=== PATIENT | female | born 1965 | race Caucasian/White ===

== ENCOUNTER → 2017-08-16 | Outpatient (CLI) | payer BC ==
[~2017-08-16] MED LIST: ASP81TEC PO; ASPI-892; CYCL5TAB11 PO; EST.1TD TOP; HCT25T; HYDR1TAB PO; IBP600T1 PO; KETO-22 PO; LISI1TAB PO; LOPE-134 PO; LORA1TAB PO; LSNP20T; NFR150C PO; ONDA8TAB9 PO; PROM25SU10 RC; RNT150T PO; TRAM50TA2 PO; TRM50T PO
--- NOTE | 2017-08-17 18:56 | Diagnostic Imaging Report ---
Bilateral screening mammogram 2D views with tomosynthesis. The current study was also evaluated with a Computer Aided Detection (CAD) system. INDICATION: Screening. No current complaints stated on the questionnaire. COMPARISON: 05/26/16 FINDINGS: The breasts are composed of scattered fibroglandular densities. There are scattered benign-appearing calcifications. Allowing for technique and positional differences, no suspicious change is seen. IMPRESSION: No significant change. ACR BI-RADS Category 2: Benign findings. Result letter will be mailed to the patient. Note: At least 10% of breast cancer is not imaged by mammography. Dictated on workstation # [id number]
== END ==
LOC: RAD 15:36
PROVIDERS: ATTEND Nurse Practitioner Community Health
DX: Z12.31 Encounter for screening mammogram for malignant neoplasm of breast (principal)
CPT/HCPCS: 77067

== ENCOUNTER → 2018-06-27 | Outpatient (CLI) | payer BC ==
--- NOTE | 2018-06-27 13:35 | Diagnostic Imaging Report ---
PROCEDURE: US Non-ob pelvis comp/trans. TECHNIQUE: Multiple realtime grayscale images were obtained of the pelvis in various projections endovaginally. Transabdominal imaging was also performed. INDICATION: Pelvic fullness on physical exam. The patient has prior history of hysterectomy. The uterus and ovaries are surgically absent. There is a 5.7 x 7.5 x 6.8 cm complex cystic mass in the midline of the pelvis, posterior to urinary bladder and adjacent to the vaginal cuff. There is internal debris. No internal vascularity is seen. No other abnormalities are detected. IMPRESSION: Complex cystic mass in the midline pelvis adjacent to the vaginal cuff, as described. This may represent a complex cyst or resolving hematoma, seroma. Perhaps percutaneous drainage via the vaginal cuff could be performed. No other abnormality is seen. Dictated by: Dictated on workstation # [id number]
== END ==
LOC: RAD 12:18
PROVIDERS: ATTEND Nurse Practitioner
DX: N94.89 Other specified conditions associated with female genital organs and menstrual cycle (principal); Z90.710 Acquired absence of both cervix and uterus; Z90.722 Acquired absence of ovaries, bilateral
CPT/HCPCS: 76830; 76856

== ENCOUNTER → 2018-08-19 | Outpatient (CLI) | payer BC ==
--- NOTE | 2018-08-19 11:46 | Diagnostic Imaging Report ---
EXAMINATION: 2D and 3D bilateral screening mammography was performed with CAD. 3D tomosynthesis was also performed and reviewed. INDICATION: Routine screening. COMPARISON: 08/16/2017 and 05/26/2016. FINDINGS: Both breasts are heterogeneously dense, limiting the sensitivity of mammography. No discrete mass or malignant appearing microcalcifications are seen. The axillae are unremarkable. IMPRESSION: No mammographic features suspicious for malignancy are identified. ACR BI-RADS Category 1: Negative. Result letter will be mailed to the patient. Note: At least 10% of breast cancer is not imaged by mammography. Dictated by: Dictated on workstation # [id number]
== END ==
LOC: RAD 07:52
PROVIDERS: ATTEND Nurse Practitioner
DX: Z12.31 Encounter for screening mammogram for malignant neoplasm of breast (principal)
CPT/HCPCS: 77067

== ENCOUNTER → 2019-10-13 | Outpatient (CLI) | payer BC ==
--- NOTE | 2019-10-14 10:50 | Diagnostic Imaging Report ---
Digital mammogram. Bilateral screening. The study was compared to the prior exam of 08/19/2018, 08/16/2017 and 06/26/2016. At this time there are no current complaints. The fibroglandular tissue in both breasts is heterogeneously dense. This does limit the sensitivity of this exam. Overall, there is does not appear to have been any significant change since the prior study. The small benign-appearing nodular density in the upper outer aspect of the right breast seen previously is again evident. There is no primary or secondary sign of malignancy noted. Impression: There is no evidence of malignancy. ACR BI-RADS Category 1: Negative. Result letter will be mailed to the patient. Note: At least 10% of breast cancer is not imaged by mammography. Dictated by: Dictated on workstation # [id number]
== END ==
LOC: RAD 15:44
PROVIDERS: ATTEND Obstetrics & Gynecology
DX: Z12.31 Encounter for screening mammogram for malignant neoplasm of breast (principal)
CPT/HCPCS: 77067

== ENCOUNTER → 2021-01-04 | Outpatient (CLI) | payer BC ==
--- NOTE | 2021-01-04 15:52 | Diagnostic Imaging Report ---
EXAMINATION: Digital mammogram bilateral screening with CAD. INDICATION: Screening. COMPARISON: This study was compared to the prior exams of 10/13/2019, 08/19/2018, and 08/16/2017. PERSONAL HISTORY: At this time, there are no current complaints. FINDINGS: The fibroglandular tissue in both breasts is heterogeneously dense. This does limit the sensitivity of this exam. Overall, there does not appear to have been any significant change when compared to the prior study. No primary or secondary sign of malignancy is noted. IMPRESSION: There is no radiographic evidence for malignancy. ACR BI-RADS Category 1: Negative. Result letter will be mailed to the patient. Note: At least 10% of breast cancer is not imaged by mammography. Dictated by: Dictated on workstation # [id number]
== END ==
LOC: RAD 10:25
PROVIDERS: ATTEND Obstetrics & Gynecology
DX: Z12.31 Encounter for screening mammogram for malignant neoplasm of breast (principal)
CPT/HCPCS: 77063; 77067

== ENCOUNTER 2021-07-14 08:58 | Outpatient (CLI) | payer BC ==
[~2021-07-14] VITALS: Ht 167.7 cm; Wt 68.0 kg
[2021-07-14] MEDS ORDERED: EPINEPHrine INJECTION 1 MG/ML AMP IM PRN (09:00)
[2021-07-14] MEDS ORDERED: CASIRIVIMAB/IMDEVIMAB 1,200 MG in NS (IVPB) 250 ML IV ONE (09:00)
[2021-07-14] MEDS ORDERED: ACETAMINOPHEN 500 MG TAB (TYLENOL) PO PRN (09:00)
[2021-07-14] MEDS ORDERED: diphenhydrAMINE 50 MG/ML INJ (BENADRYL) IV PRN (09:00)
[2021-07-14] MEDS ORDERED: ONDANSETRON 4 MG/2 ML (SDV) Z0FRAN IV PRN (09:00)
[2021-07-14 09:04] VITALS: BP 98/61
[2021-07-14 09:06] VITALS: BP 98/61
[2021-07-14 09:41] LABS: ALBUMIN 4.2 GM/DL (3.2-4.5); BILIRUBIN,TOTAL 0.5 MG/DL (0.1-1.0); CALCIUM 9.5 MG/DL (8.5-10.1); CREATININE SERUM 1.02 MG/DL (0.60-1.30); POTASSIUM 3.8 MMOL/L (3.6-5.0)
[2021-07-14 10:05] VITALS: BP 81/59
== END 2021-07-14 10:30 | disposition home or self-care (01) ==
LOC: INFUSION 08:58
PROVIDERS: ATTEND Nurse Practitioner Family
DX: Z23 Encounter for immunization (principal); U07.1 COVID-19
CPT/HCPCS: 80053; M0243; 36415

== ENCOUNTER 2021-09-09 15:56 | Outpatient (CLI) | payer BC ==
[~2021-09-09] VITALS: Ht 165 cm; Wt 68.0 kg
[2021-09-09 16:11] VITALS: BP 101/63
[2021-09-09] MEDS ORDERED: NS IV 1000 ML 1,000 ML ONE (16:14)
[2021-09-09] MEDS ORDERED: NS IV 1000 ML 1,000 ML IV SCH (16:15)
== END 2021-09-09 17:27 | disposition home or self-care (01) ==
LOC: SDC 15:56
PROVIDERS: ATTEND Family Medicine
DX: E86.0 Dehydration (principal); R19.7 Diarrhea, unspecified

== ENCOUNTER → 2021-09-13 | Outpatient (CLI) | payer BC ==
--- NOTE | 2021-09-13 16:22 | Diagnostic Imaging Report ---
PROCEDURE: CT abdomen and pelvis without contrast. TECHNIQUE: Multiple contiguous axial images were obtained through the abdomen and pelvis without the use of intravenous contrast. Auto Exposure Controls were utilized during the CT exam to meet ALARA standards for radiation dose reduction. INDICATION: Abdominal pain and diarrhea. COMPARISON: Correlation is made with CT pelvis study from 07/15/2018. FINDINGS: The lung bases are clear. The liver and gallbladder are unremarkable. There is no biliary ductal dilatation. Pancreas and spleen are unremarkable. Rounded calcific densities in the region of the pancreatic body and tail are noted which may represent splenic artery aneurysms. No adrenal mass is detected. Kidneys are unremarkable. No calculi or hydronephrosis is detected. Aorta is nonaneurysmal. The colon does contain some fluid consistent with known diarrheal state but no abnormal dilatation or evidence of obstruction is seen. Appendix is unremarkable. There is trace free fluid in the pelvis. No free fluid in the abdomen is identified. Uterus is surgically absent. IMPRESSION: Fluid within the colon. The study is otherwise unremarkable. Dictated by: Dictated on workstation # [id number]
== END ==
LOC: RAD 15:45
PROVIDERS: ATTEND Family Medicine
DX: R19.7 Diarrhea, unspecified (principal); R10.9 Unspecified abdominal pain
CPT/HCPCS: 74176

== ENCOUNTER → 2021-12-23 | Outpatient (CLI) | payer BC ==
--- NOTE | 2021-12-23 17:09 | Diagnostic Imaging Report ---
PROCEDURE: US Renal/Bladder. TECHNIQUE: Multiple real-time grayscale images were obtained over the kidneys in various projections, bilaterally. INDICATION: Chronic kidney disease. COMPARISON: 09/13/2021. FINDINGS: Right: The right kidney measures 9.4 cm in length. Renal cortical thickness and echogenicity are within normal limits. There is mild prominence of the right renal pelvis and calyces in the right kidney. There is no evidence of calculi or solid focal mass. No perinephric fluid collections are identified. Left: The left kidney measures 10.7 cm in length. Renal cortical thickness and echogenicity are within normal limits. There is mild prominence of the left renal pelvis and calyces of the left kidney. There is no evidence of calculi or solid focal mass. No perinephric fluid collections are identified. There is no abdominal ascites. Views of the pelvis demonstrate a moderately distended urinary bladder. Both ureteral jets are seen. No large intraluminal filling defect or calculi are identified. IMPRESSION: Mild bilateral hydronephrosis. Findings may partially be due to the moderately distended urinary bladder. Recommend continued follow-up, as indicated. Dictated by: Dictated on workstation # [id number]
== END ==
LOC: RAD 14:30
PROVIDERS: ATTEND Internal Medicine
DX: N13.30 Unspecified hydronephrosis (principal); N18.31 Chronic kidney disease, stage 3a
CPT/HCPCS: 76770

== ENCOUNTER → 2022-03-28 | Outpatient (CLI) | payer BC ==
--- NOTE | 2022-03-28 17:05 | Diagnostic Imaging Report ---
Examination: Ultrasound pelvis Date: March 28, 2022. Indication: 56-year-old female, pelvic pressure and pain.. Comparison: CT abdomen and pelvis September 13, 2021. Technique: A sonogram of the pelvis was performed utilizing transabdominal approaches assessing sanchez-scale appearance and color Doppler flow. Findings: The uterus and ovaries are not seen and may be surgically absent. There is no demonstrated adnexal mass or free pelvic fluid. Impression: 1. Uterus and ovaries are not well seen and may be surgically absent. 2. No identified adnexal mass, other pelvic mass, or free pelvic fluid. Dictated by: Dictated on workstation # [id number]
== END ==
LOC: RAD 13:30
PROVIDERS: ATTEND Family Medicine
DX: R10.2 Pelvic and perineal pain (principal)
CPT/HCPCS: 76830; 76856

== ENCOUNTER → 2022-04-19 | Outpatient (CLI) | payer BC ==
--- NOTE | 2022-04-19 17:14 | Diagnostic Imaging Report ---
PROCEDURE: US Renal Bilateral. TECHNIQUE: Multiple real-time grayscale images were obtained over the kidneys in various projections bilaterally. INDICATION: Hydronephrosis. FINDINGS: Right kidney measures 9.5 x 4.7 x 4.3 cm. Left kidney measures 10.9 x 4.7 x 5 cm. Both kidneys demonstrate normal renal cortical thickness and echogenicity. There is bilateral hydronephrosis. There is no mass or calculi. Prevoid bladder volumes 423 mL. Neither ureteral jet was visualized. Postvoid bladder volumes 8.75 mL. IMPRESSION: Bilateral hydronephrosis otherwise unremarkable renal ultrasound. Dictated by: Dictated on workstation # [id number]
== END ==
LOC: RAD 15:15
PROVIDERS: ATTEND Nurse Practitioner Family
DX: N13.39 Other hydronephrosis (principal)
CPT/HCPCS: 76770

== ENCOUNTER → 2022-05-11 | Outpatient (CLI) | payer BC ==
[~2022-05-11] MED LIST changes: +FUROSEMIDE 40 MG/4 ML INJ (LASIX) IVP ONE; +FUROSEMIDE 40 MG/4 ML INJ (LASIX) ONE
[2022-05-11] MEDS: CATHETER FLUSH 10 ML SYR IVP PRN ×2 (07:17→07:35)
--- NOTE | 2022-05-11 08:27 | Diagnostic Imaging Report ---
EXAMINATION: Nuclear medicine renal scintigraphy with Lasix. HISTORY: Hydronephrosis TECHNIQUE: Flow and functional dynamic images were obtained of the bilateral kidneys in the posterior projection following the administration of 5.36 mCi of Tc 99m-MAG3. Response to diuretic was also performed following the administration of 40 mg of Lasix at 20 minutes. FINDINGS: There is symmetric and homogenous perfusion to both kidneys. Kidneys are normal in size and location. There is symmetric cortical uptake to both kidneys. There is symmetric excretion following Lasix administration. There is no hydronephrosis. Split renal function is 47% on the right and 53% on the left. T1/2 to peak prior to Lasix is eight minutes on the right and seven minutes on the left. Time to peak prior to Lasix is one minute on the right and one minute on the left. T1/2 of excretion after administration of Lasix is 15 minutes on the right and 15 minutes on the left. IMPRESSION: 1. Normal flow and function of both kidneys without evidence of obstruction. Dictated by: Dictated on workstation # [id number]
== END ==
LOC: CARD 07:00
PROVIDERS: ATTEND Nurse Practitioner Family
DX: N13.39 Other hydronephrosis (principal)
CPT/HCPCS: 78708; A9562

== ENCOUNTER 2022-07-13 08:54 | Outpatient (CLI) | payer BC ==
[~2022-07-13] VITALS: Ht 167.6 cm; Wt 77.1 kg
[~2022-07-13 08:54] MED LIST changes: -FUROSEMIDE 40 MG/4 ML INJ (LASIX) IVP ONE; -FUROSEMIDE 40 MG/4 ML INJ (LASIX) ONE
[2022-07-13 09:07] VITALS: BP 90/66
[2022-07-13] MEDS ORDERED: BEBTELOVIMAB 175 MG/2 ML VIAL IV ONE (09:15)
[2022-07-13] MEDS ORDERED: diphenhydrAMINE 50 MG/ML INJ (BENADRYL) IV PRN (09:15)
[2022-07-13] MEDS ORDERED: ACETAMINOPHEN 500 MG TAB (TYLENOL) PO PRN (09:15)
[2022-07-13] MEDS ORDERED: EPINEPHrine INJECTION 1 MG/ML AMP IM PRN (09:15)
[2022-07-13] MEDS ORDERED: ONDANSETRON 4 MG/2 ML (SDV) Z0FRAN IV PRN (09:15)
[2022-07-13 09:58] VITALS: BP 92/59
== END 2022-07-13 10:01 | disposition home or self-care (01) ==
LOC: INFUSION 08:54
PROVIDERS: ATTEND Nurse Practitioner Family
DX: U07.1 COVID-19 (principal)

== ENCOUNTER → 2023-06-25 | Outpatient (CLI) | payer BC ==
--- NOTE | 2023-06-26 14:22 | Diagnostic Imaging Report ---
INDICATION: Routine screening. COMPARISON: 01/04/2021 and 10/13/2019. TECHNIQUE: 2D and 3D bilateral screening mammography was performed with CAD. FINDINGS: Both breasts are heterogeneously dense, limiting the sensitivity of mammography. No mass or malignant-appearing microcalcifications are seen. The axillae are unremarkable. IMPRESSION: No mammographic features suspicious for malignancy are identified. ACR BI-RADS Category 1: Negative. Result letter will be mailed to the patient. Note: At least 10% of breast cancer is not imaged by mammography. Dictated by: Dictated on workstation # [id number]
== END ==
LOC: RAD 15:00
PROVIDERS: ATTEND Family Medicine
DX: Z12.31 Encounter for screening mammogram for malignant neoplasm of breast (principal)
CPT/HCPCS: 77063; 77067